=== PATIENT | male | born 1955 | race Caucasian/White ===

== ENCOUNTER → 2017-03-15 | Outpatient (CLI) | payer BC | END | disposition home or self-care (01) | LOC: PTH.S 03-12 08:45 | DX: Z48.22 Encounter for aftercare following kidney transplant (principal); Z94.0 Kidney transplant status; Z94.83 Pancreas transplant status; Z79.899 Other long term (current) drug therapy ==

== ENCOUNTER → 2017-03-22 | Outpatient (CLI) | payer BC | END | disposition home or self-care (01) | LOC: PTH.S 09:02 | DX: Z48.288 Encounter for aftercare following multiple organ transplant (principal); Z94.0 Kidney transplant status; Z79.899 Other long term (current) drug therapy; Z94.83 Pancreas transplant status ==